=== PATIENT | female | born 2000 | race Caucasian/White ===

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

== ENCOUNTER 2023-02-13 20:04 | Emergency (ER) | payer OTHER, SELFPAY ==
[2023-02-13] VITALS (10 sets, daily range): BP systolic 114–149; BP diastolic 70–97; PULSE 73–103; RESP 16–18; TEMP 36.2–36.5; O2SAT 99–100
--- NOTE | ~2023-02-13 | US_ITS ---
EXAMINATION: US OB <= 14 weeks fetus INDICATION: abdominal pain, bleeding, 12 weeks TECHNIQUE: Sonography of the pelvis was performed by transabdominal techniques. COMPARISON: None. RESULT: Uterus: Retroverted uterus. Homogenous myometrium. The placenta is forming anteriorly. Cervix measur es 3 cm. Although the technologist reported a closed cervix, there is apparent funneling and fluid wi thin the endocervical canal in the submitted images. Intrauterine gestational sac: Single present. Embryo: Single present. [place] rump length: 5.26 cm, corresponding gestational age 12 weeks, 0 days. Gestational heart rate: Detected at 165 bpm. Subgestational hematoma: Absent . Right ovary: . Visualized. Left ovary: 2.8 x 2.3 x 3.4 cm. Vascular flow is present. Minimally complicated small ovarian cyst , likely resolving corpus luteal cyst. Pelvis free fluid: None. IMPRESSION: Single, live intrauterine gestation. Possible cervical incompetence, recommend OB consultation and cl ose clinical and sonographic follow-up. Estimated Gestational Age: 12 weeks, 0 days by crown rump length. KHUSHI by ultrasound 08/28/2023. Reviewed, dictated and finalized at location K. IMPRESSION: Single, live intrauterine gestation. Possible cervical incompetence, recommend OB consultation and close clinical and sonographic follow-up. Estimated Gestational Age: 12 weeks, 0 days by crown rump length. KHUSHI by ultra sound 08/28/2023.
--- NOTE | 2023-02-13 20:39 | PC.NURSE ---
Pt sts that she was at [facility] and left [facility]BS. Pt has results of labs that were drawn at previous hospital. Pt sts that she has been vomiting and noticed blood. PT is 11 weeks . IV established 22 L wrist. Pt is axox4, abc are wnl nad. PT denies pain at this time.
[2023-02-13 21:47] LABS: Basophils Absolute Auto 0.1 K/mm3 (0.0-0.1); Basophils Percent Auto 0.7 % (0.2-1.2); Eosinophils Absolute Auto 0.1 K/mm3 (0-0.3); Eosinophils Percent Auto 0.5 % (0-4.4); Hematocrit 38.2 % (37.0-47.0); Hemoglobin 12.9 g/dL (12.0-15.0); Immature Granulocyte Absolute 0.02 K/mm3 (0.00-0.031); Immature Granulocyte Percent A 0.2 % (0-0.5); Lymphocytes Absolute Auto 2.98 K/mm3 (0.9-3.2); Lymphocytes Percent Auto 28.1 % (18.3-44.2); Mean Corpuscular HGB Conc 33.8 g/dl (32-36); Mean Corpuscular Hemoglobin 31.8 pg (26-34); Mean Corpuscular Volume 94.1 fl (80-100); Monocytes Absolute Auto 0.4 K/mm3 (0.1-0.6); Neutrophils Absolute Auto 7.1 K/mm3 (1.3-6.7); Neutrophils Percent Auto 66.5 % (45.5-73.1); Platelet Count Result 221 k/mm3 (150-375); Red Blood Count 4.06 M/mm3 (4.2-5.4); Red Cell Distribution Width 12.2 % (11.5-14.5); White Blood Count 10.6 K/mm3 (4.5-10.0)
[2023-02-13 21:49] LABS: Appearance Urine Clear (Clear); Bilirubin Urine Negative (Negative); Blood Urine Negative (Negative); Color Urine Yellow (Yellow); Glucose Urine UA Negative (Negative); Ketones Urine 3+ mg/dL (Negative); Leukocyte Esterase Ur Negative LEU/UL (Negative); Nitrate Urine Negative (Negative); Protein Urine Negative (Negative); Specific Grav Ur 1.007 (1.001-1.035); Urobilinogen Urine 0.2 mg/dL (<2.0)
[2023-02-13 21:50] LABS: Add Urine Microscopic? NO
[2023-02-13 21:56] LABS: Alanine Aminotransferase 14 U/L (6-35); Albumin Level 4.2 g/dL (3.5-5.1); Alkaline Phosphatase 37 U/L (38-126); Anion Gap 13 mmol/L (8-16); Aspartate Amino Transferase 26 U/L (14-36); Bilirubin,Total 0.6 mg/dL (0.2-1.3); Blood Urea Nitrogen 5 mg/dL (7-17); Calcium 8.9 mg/dL (8.4-10.2); Carbon Dioxide 21 mmol/L (22-30); Chloride 103 mmol/L (98-107); Estimated CRCL calculation 160 ml/min; Estimated Glomerular Filt Rate > 60; Glucose 82 mg/dL (65-110); Potassium 3.2 mmol/L (3.4-5.0); Sodium 137 mmol/L (137-145)
[2023-02-13 21:57] LABS: INR 1.1; Prothrombin Time 14.8 Seconds (11.1-14.7)
--- NOTE | 2023-02-13 21:57 | ED.NAVMDI ---
HPI - Nausea/Vomiting/Diarrhea General Chief complaint: Nausea/Vomiting/Diarrhea Stated complaint: 12 weeks preg, spotting, n/v Time Seen by Provider: 02/13/23 20:14 History of Present Illness HPI Narrative: 22-year-old female, G1, P0, LMP 11/21 who is currently 12 weeks gestation reports for evaluation for abdominal pain, bright yellow and pink vaginal discharge, vomiting and lightheadedness. Patient states she has had a dull ache in her right lower quadrant today which she states feels like a pulled muscle. She reports 2 episodes of emesis today that mostly consisted of stomach acid but she does report a small tinge of blood in her last episode of emesis. She reports feeling lightheaded for the past week that is associated with nausea and spontaneously resolves after she vomits. She reports decreased p.o. intake today because she has not had time to eat after work. She is also complaining of a dribbling sensation coming from her vagina around 5:30 PM tonight, states she went to the bathroom and noticed bright yellow vaginal discharge with a small amount of pink tinge which she is concerned may be blood. She denies a gush of fluids, dysuria or hematuria, vaginal bleeding, diarrhea, melena, hematochezia, fever, chest pain or shortness of breath, concern for STDs, vaginal pain, vaginal lesions, or vaginal itching, back pain. She went to [facility] ED today and left prior to being seen and came to the ED after her friend advised her to come to [place] for evaluation. Patient states he had an ultrasound done at 6 weeks which confirmed IUP. Her first OB appointment is scheduled in 4 days. Her STATION MASTER is Joie Ayala at [facility]. States she is currently not nauseous or lightheaded. Related Data Home Medications Medication Instructions Recorded Confirmed bupropion HCl 150 mg tablet,12 hr 150 mg PO BID 04/16/21 08/27/21 sustained-release buspirone 10 mg tablet 10 mg PO BID 04/16/21 08/27/21 alprazolam 0.25 mg tablet 0.25 mg PO TID PRN Anxiety 08/27/21 08/27/21 Allergies Allergy/AdvReac Type Severity Reaction Status Date / Time No Known Allergies Allergy Verified 08/27/21 22:12 Review of Systems Review of Systems: CONSTITUTIONAL: Denies fever, chills EYES: Denies visual changes, redness, or discharge. ENT: Denies rhinorrhea, congestion, sore throat, or otalgia. CARDIOVASCULAR: Denies chest pain, palpitations, or edema. RESPIRATORY: Denies cough or dyspnea. GASTROINTESTINAL: See HPI GENITOURINARY: See HPI SKIN: Denies rash or itching. MUSCULOSKELETAL: Denies back pain, joint pain, or myalgia. NEUROLOGIC: Denies headache, numbness, dizziness, or weakness. PSYCHIATRIC: Denies anxiety or depression. [facility] Past Medical History Medical History Abdominal pain Gastroenteritis GERD without esophagitis Family History Family History Other GERD without esophagitis Exam Narrative: GENERAL: Well-appearing, in no acute distress. Patient resting comfortably in exam bed. She is pleasant and conversational. HEAD: Normocephalic EYES: PERRLA ENT: Nares clear. Mucous membranes moist. Oropharynx without tonsillar hypertrophy exudate or other lesions. NECK: Supple. CHEST: No respiratory distress. Clear to auscultation, no adventitious breath sounds. HEART: Regular rate and rhythm. No murmur heard. Normal peripheral pulses. ABDOMEN: Soft, nontender, normal active bowel sounds. No guarding or rigidity. No peritoneal signs. SHOPPER: No lesions to external genitalia, vaginal vault or cervix. Cervical os closed, scant amount of white discharge in vaginal vault. No blood in vaginal vault. No CMT, adnexal masses or tenderness. EXTREMITIES: Normal range of motion. No edema. SKIN: Warm, dry, no rash. NEURO: No focal deficits. Alert and oriented x3. PSYCH: Normal mood and affect. Course Vital Signs V
[2023-02-13 21:58] LABS: Partial Thromboplastin Time 28.8 SECONDS (22.3-36.8)
--- NOTE | 2023-02-13 22:01 | ECG_ITS ---
Measurements Intervals [place] Rate: 96 P: -1 NV: 154 QRS: 35 QRSD: 90 T: 2 QT: 335 QTc: 424 Interpretive Statements SINUS RHYTHM BORDERLINE ST-T WAVE ABNORMALITY- ANT/INF LEADS BORDERLINE ECG NO PREVIOUS ECG AVAILABLE FOR COMPARISON Electronically Signed On 02-14-2023 7:15:29 CDT by Alin Tate D.O.
[2023-02-13] MEDS: SODIUM CHLORIDE 0.9% IV 1,000 ML 999 ML IV CONT (22:02)
[2023-02-13] MEDS: POTASSIUM CHLORIDE 20 MEQ PACKET (FOR LIQUID) 40 MEQ PO (22:46)
[2023-02-13 23:56] LABS: Magnesium 1.9 mg/dL (1.6-2.3)
[2023-02-14] MEDS: SODIUM CHLORIDE 0.9% IV 1,000 ML 999 ML IV CONT (00:12)
[2023-02-14 00:58] VITALS: BP 128/74; PULSE 74; RESP 18; TEMP 36.9; O2SAT 100
--- NOTE | 2023-02-18 00:20 | PC.NURSE ---
02/16/23 iv stopped after infusion of ivf
--- NOTE | 2023-02-18 00:22 | PC.NURSE ---
02/16/23 iv stopped at dcd
== END 2023-02-14 00:58 | disposition home or self-care (01) ==
PROVIDERS: Emergency Provider Physician Assistant; PCP Physician Assistant
DX: O21.9 Vomiting of pregnancy, unspecified (principal); Z3A.20 20 weeks gestation of pregnancy; O99.612 Diseases of the digestive system complicating pregnancy, second trimester; K21.9 Gastro-esophageal reflux disease without esophagitis
CPT/HCPCS: 36415; 76801; 80053; 81003; 83735; 84702; 85025; 85461; 85610; 85730; 86850; 86900; 86901; 93005; 96360; 96361; 99284; A9270; J7030

== ENCOUNTER 2024-12-06 17:00 | Emergency (ER) | payer OTHER, SELFPAY ==
[2024-12-06] VITALS (8 sets, daily range): BP systolic 122–130; BP diastolic 78–99; PULSE 87–128; RESP 16–18; TEMP 36.6–37; O2SAT 97–100
--- NOTE | ~2024-12-06 | CT_ITS ---
EXAMINATION: CT abdomen pelvis wo con DATE: 12/06/2024 21:36 INDICATION: L flank pain, UTI TECHNIQUE: Computed tomography (CT) of the abdomen and pelvis was performed without intravenous contr ast. Automated exposure control and iterative reconstruction technique were employed. The dose-length product was 704.78 mGy-cm. COMPARISON: None. FINDINGS: Lower thorax: Unremarkable Liver: Normal. Biliary/Gallbladder: Gallbladder is normal. No bile duct dilation. Pancreas: No mass or duct dilation. Spleen: Normal. Adrenals:No mass. Kidneys: No suspicious mass, obstructing stone, or hydronephrosis. Minimal left perinephric stranding . GI tract: No small or large bowel dilation. Normal appendix. Mesentery/Peritoneum: No ascites, mass, or free air. Retroperitoneum: No mass. Pelvis: Pelvic organs are within normal limits. Soft Tissues: Soft tissues and body wall unremarkable. Bones: No acute osseous finding. IMPRESSION: Mild left perinephric stranding which could accompany pyelonephritis in the appropriate clinical sett ing. Reviewed, dictated and finalized at location K. IMPRESSION: Mild left perinephric stranding which could accompany pyelonephritis in the vinh ropriate clinical setting.
--- OUTSIDE RECORDS SUMMARY | 2024-12-06 17:03 | XMS_ITS | Referral Summary ---
Author Organization [facility] Address [address] [place] [address] Care Team Providers Care Full Stack Developer Name Role Phone Sean Barker Primary Care Provider Encounters Date Type Department Care Team Description 12/06/2024 4:24 PM CDT - 12/06/2024 4:28 PM CDT Emergency [facility] Emergency Department [address] [place] [address] Discharge Disposition: Left without being seen 12/06/2024 3:15 PM CDT Office Visit [facility] [place] [address] [place] [phone] Thelma Alcala NP Nausea (Primary Dx); Abdominal pain; Pyelonephritis 11/02/2024 Results Follow-Up [facility] [place] [address] [place] [phone] Pretty Hayden NP 11/01/2024 1:47 PM CDT - 11/01/2024 11:59 PM [place] [address] Acute cystitis with hematuria Discharge Disposition: Discharge to home or self care 11/01/2024 2:00 PM CDT Office Visit [facility] [place] [address] [place] [phone] Thelma Alcala NP Acute cystitis with hematuria (Primary Dx) from Last 3 Months Allergies No known active allergies Medications escitalopram (LEXAPRO) 10 mg tablet TAKE 1 TABLET BY MOUTH EVERY DAY 90 tablet 4 Active al & mag hydroxide with simethicone-diph enhydramine-lido maday (MAGIC MOUTHWASH) suspension [id number] :Pharyngitis, unspecified etiology Swish and spit 10 mL every 4 (four) hours as needed (sore throat) 100 mL 4 Active cephalexin (KEFLEX) 500 mg capsule Take 1 capsule (500 mg total) by mouth 2 (two) times a day for 7 days 14 capsule 5 11/09/19 25 Active Problems Problem Noted Date Diagnosed Date care and examination 09/08/2023 Assessment & Plan (09/08/2023 9:53 AM DISPATCH MANAGER): Doing well Tachycardia 08/28/2023 Assessment & Plan (09/08/2023 9:53 AM DISPATCH MANAGER): Persist today She is about 110 She is asx. She states her pulse is always high. Tsh normal 08/28/23 Anemia 08/28/2023 Overview (09/08/2023): 08/28/23- 7.4 Assessment & Plan (10/06/2023 2:29 PM CDT): To cbc She is feeling good No more tachycardia. Assessment & Plan (09/08/2023 9:48 AM DISPATCH MANAGER): She is taking her iron. 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 03/16/23- negative My Risk and VUS 29.8% my risk score and 21.9% TC model Assessment & Plan (02/22/2023 5:59 AM CDT): She qualifies for genetic testing. Will arrange. RTO 6 weeks for the results. The limitations and implications of the test reviewed. She voices understanding and would like to proceed. Pricing was discussed. Resolved Problems Problem Noted Date Diagnosed Date Resolved Date hemorrhage 08/28/20232023 with 39 completed weeks gestation 08/25/2023 09/08/2023 39 weeks gestation of 08/18/2023 09/08/2023 Encounter for supervision of normal first in third trimester 08/10/2023 09/08/2023 36 weeks gestation of 08/03/2023 09/08/2023 Encounter for supervision of normal first in first trimester 02/22/2023 09/08/2023 Overview (03/16/2023): 03/16/23- negative cell free dna testing. Uncertain SMA on carrier screening. Assessment & Plan (02/22/2023 5:57 AM CDT): Her cervix seems fine today Will send her for CL as I dont have the records from [facility] Will try to obtain. Rubella non-immune status, antepartum 02/18/2023 10/06/2023 Overview (02/18/2023): 02/18/23- will plan to vaccinate pp Assessment & Plan (09/08/2023 9:46 AM DISPATCH MANAGER): She got pp Immunizations Immunization Administration Dates Next Due Influenza, Unspecified 06/22/2023(Deferred: Susan ent Refused) MMR 08/28/2023 Tdap 08/03/2023,06/22/2023(Deferred: Patient Refused) Social History Tobacco Use Types Packs/Day Years Used Date Smoking Tobacco: Never Smokeless Tobacco: Never Tobacco Cessation:Counseling Given: Not Answered Humiliation, Afraid, Rape, and Kick questionnair e Answer Date Recorded Within the last year, have y ou been afraid of your partner or ex-partner? No 02/17/2023 Within the last year, have y ou been humiliated or emotionally abused in other ways by your partner or ex-partner? No Within the last year, have y ou been kicked, hit, slapped, or otherwise physically hurt by your partner or ex-partner? No 02/17/2023 Within the last year, have y ou been raped or forced to have any kind of sexual activity by your partner or ex-partner? No 02/17/2023 Social Connection and Isolat ion Panel [NHANES] Answer Date Recorded In a typical week, how many times do you talk on the phone with family, friends, or neighbors? More than three times a week 08/25/2023 How often do you get togethe r with friends or relatives? Once a week 08/25/2023 How often do you attend chur or pentecostalism services? Never 08/25/2023 Do you belong to any clubs o r organizations such as methodist groups, unions, fraternal or athletic groups, or school groups? No 08/25/2023 How often do you attend meet ings of the clubs or organizations you belong to? Never 08/25/2023 Are you , , di vorced, , never , or living with a partner? Living with partner 08/25/2023 AUDIT-C Answer Date Recorded Q1: How often do you have a drink containing alcohol? Never 08/25/2023 Q2: How many drinks containi ng alcohol do you have on a typical day when you are drinking? Patient does not drink Q3: How often do you have si x or more drinks on one occasion? Never 08/25/2023 Overall Financial Resource Strain (CARDIA) Answe r Date Recorded How hard is it for you to pa y for the very basics like food, housing, medical care, and heating? Not hard at all 08/25/2023 PHQ-2 Answer Date Recorded PHQ-2 Total Score (If total score is 3 or more points, staff should administer the PHQ-9) 0 08/25/2023 [facility] - Occupational Stress Questionnaire Answer Date Recorded Do you feel stress - tense, restless, nervous, or anxious, or unable to sleep at night because your mind is troubled all the time - these days? Not at all 08/25/2023 Exercise Vital Sign Answer Date Recorde d On average, how many days pe r week do you engage in moderate to strenuous exercise (like a brisk walk)? 7 days 08/25/2023 On average, how many minutes do you engage in exercise at this level? 30 min 08/25/2023 Hunger Vital Sign Answer Date Recorded Within the past 12 months, y ou worried that your food would run out before you got the money to buy more. Never true 08/25/19 24 Within the past 12 months, t he food you bought just didn't last and you didn't have money to get more. Never true 08/25/2023 PRAPARE - Transportation Answer Date Re corded In the past 12 months, has l ack of transportation kept you from medical appointments or from getting medications? No 07/29 In the past 12 months, has l ack of transportation kept you from meetings, work, or from getting things needed for daily living? No 08/25/2023 Housing Stability Vital Sign Answer Alex e Recorded In the last 12 months, was t here a time when you were not able to pay the mortgage or rent on time? No 08/25/2023 In the last 12 months, how many places have you lived? 2 08/25/2023 In the last 12 months, was t here a time when you did not have a steady place to sleep or slept in a skilled nursing (including now)? No 08/25/2023 [place] Depression Scale Answer Date Recorded [place] Depression Scale Total 0 10/06/2023 The thought of harming myself has occurred to me . Never 10/06/2023 Personal Safety Answer Date Recorded Have you ever been in or are you currently in a harmful physical or emotional relationship or is someone making you feel afraid or unsafe? Denies 08/25/2023 Comments No Sex and Gender Information Value Date Recorded Sex Assigned at Not on file Legal Sex Female 4:17 PM DISPATCH MANAGER Gender Identity Not on file Sexual Orientation Not on file Last Filed Vital Signs Vital Sign Reading Time Taken Comments Blood Pressure 118/78 12/06/2024 3:09 PM CDT Pulse 105 12/06/2024 3:09 PM CDT Temperature 37.1 C (98.8 F) 12/06/2024 3:09 PM CDT Respiratory Rate 22 12/06/2024 3:09 PM CDT Oxygen Saturation 98% 12/06/2024 3:09 PM CDT Inhaled Oxygen Concentration - - Weight 79.4 kg (175 lb) 12/06/2024 3:09 PM CDT Height 160 cm (5' 3 ) 12/06/2024 3:09 PM CDT Body Mass Index 31 12/06/2024 3:09 PM CDT Plan of Treatment Not on file Procedures Procedure Name Priority Date/Time Associated Diagnosis Comments POCT HCG, URINE Routine 12/06/2024 3:34 PM CDT Nausea POCT URINALYSIS DIPSTICK Routine 12/06/2024 3:33 PM CDT Nausea POCT URINALYSIS DIPSTICK Routine 11/01/2024 1:48 PM CDT Acute cystitis with hematuria URINE CULTURE Routine 11/01/2024 1:47 PM CDT Acute cystitis with hematuria HEPATITIS C ANTIBODY Routine 06/08/2023 12:17 PM DISPATCH MANAGER Encounter for supervision of normal first in second trimester 28 weeks gestation of from Last 3 Months or Most Recently Relevant to Health Maintenance Results * POCT hCG, urine (12/06/2024 3:34 PM CDT) HCG, ur, POC Negative Negative Lot Number [id number] QC Backgroud Clear Acceptable QC Control Line Acceptable Urine 12/06/2024 3:34 PM CDT Thelma Alcala NP POINT OF CARE TEST ORDERABLES Fi nal Result * (ABNORMAL) POCT urinalysis dipstick (12/06/2024 3:33 PM CDT) Color, Urine, POC Dark Yellow Clarity, ur, POC Clear Clear Glucose, ur, POC Negative Negative Bilirubin, ur, POC Small(A) Negative Ketones, ur, POC 15.(A) Negative Specific [place], POC 1.020 1.003 - 1.030 Blood, ur, POC Moderate(A) Negative pH, ur, POC 6.0 5.0 - 8.0 Protein, ur, POC 30.(A) Negative Urobilinogen, urine, POC 1.0 0.2 - 1.0 mg/dL Nitrite, ur, POC Negative Negative Leukocytes, ur, POC Moderate(A) Negative Lot Number [id number] Urine 12/06/2024 3:33 PM CDT us Thelma Alcala NP POINT OF CARE TEST ORDERABLES Fi nal Result * (ABNORMAL) POCT urinalysis dipstick (11/01/2024 1:48 PM CDT) Color, Urine, POC Light Yellow Clarity, ur, POC Turbid(A) Clear Glucose, ur, POC Negative Negative MG/DL Bilirubin, ur, POC Negative Negative, Small, Moderate, Large Ketones, ur, POC Negative Negative Specific [place], POC 1.025 1.003 - 1.030 Blood, ur, POC Moderate(A) Negative pH, ur, POC 7.0 5.0 - 8.0 Protein, ur, POC 100.(A) Negative Urobilinogen, urine, POC 0.2 0.2 - 1.0 mg/dL Nitrite, ur, POC Negative Negative Leukocytes, ur, POC Moderate(A) Negative Lot Number [id number] Urine 11/01/2024 1:48 PM CDT us Thelma Alcala NP POINT OF CARE TEST ORDERABLES Fi nal Result * (ABNORMAL) Urine culture Urine, clean voided (11/01/2024 1:47 PM CDT) Report Final Report: Greater than or equal to 100,000 colonies/mL of Escherichia coli (.) Comment:Testing performed by : [facility], [address] [place]., [address] Organism ESCHERICHIA COLI [place] Urine, clean voided 11/01/2024 1:47 PM CDT 11/01/2024 10:34 PM CDT Narrative DESMOND - 11/04/2024 6:17 AM CDT Testing performed by [facility] Microbiology Laboratory ([phone]) Organism Antibiotic Method Susceptibility Escherichia coli Ampicillin INTERPRETATION Susceptible Escherichia coli Cefazolin INTERPRETATION Susceptible Escherichia coli Nitrofurantoin INTERPRETATION Susceptible Escherichia coli Gentamicin INTERPRETATION Susceptible Escherichia coli Trimethoprim with Sulfamethoxazole IN TERPRETATION Susceptible Escherichia coli Meropenem INTERPRETATION Susceptible Escherichia coli Cefepime INTERPRETATION Susceptible Escherichia coli Ciprofloxacin INTERPRETATION Susceptible Escherichia coli Ceftazidime INTERPRETATION Susceptible Escherichia coli Ceftriaxone INTERPRETATION Susceptible Escherichia coli Piperacillin/Tazobactam INTERPRETATIO N Susceptible Escherichia coli Cephalexin INTERPRETATION Susceptible Escherichia coli Cefuroxime-axetil INTERPRETATION Susceptible Escherichia coli Cefdinir INTERPRETATION Susceptible Thelma Alcala NP LAB MICROBIOLOGY - GENERAL ORDER ADRIAN Final Result Performing Organization Address City/[facility] Co de Phone Number [facility] [address] [address] Department [place] [address] * Hepatitis C antibody Blood (06/08/2023 12:17 PM DISPATCH MANAGER) Hep C Ab Nonreactive Nonreactive DESMOND Comment: Interpretive Data Nonreactive: Antibodies to HCV not detected. Does NOT exclude the possibility of recent exposure to HCV. Equivocal: Equivocal for HCV antibodies. Supplemental molecular testing will be automatically performed to determine infection status in accordance with current CDC screening recommendations. Reactive: Positive for HCV antibodies. This may represent current or past HCV infection. Supplemental molecular testing will be automatically performed to determine current infection status in accordance with current CDC screening recommendations. Interpretive data was last revised on 2019. Blood 06/08/2023 12:1 7 PM DISPATCH MANAGER 06/08/2023 8:11 PM DISPATCH MANAGER Rajni Chambrelain ROOFING MACHINE OPERATOR LAB MICROBIOLOGY - GENERAL [place] [id number] [address] Department [place] [address] from Last 3 Months or Most Recently Relevant to Health Maintenance Insurance [employer] [facility] [employer] [facility] Advance Directives For more information, please contact: [phone] * Full Code (Latest Code Status on File) Date Activated Date Inactivated Comments 08/26/2023 5:16 AM 08/28/2023 5:54 PM * Full Code Date Activated Date Inactivated Comments 08/25/2023 11:30 AM 08/26/2023 5:16 AM Full CPR in case of cardiopulmonary arrest Care Teams Full Stack Developer Relationship Specialty Start Date End Date Sean Barker PA [address] [place] [address] PCP - General 08/25/17
--- OUTSIDE RECORDS SUMMARY | 2024-12-06 17:03 | XMS_ITS | Encounter Summary ---
Author Organization [facility] Healthcare Address [address] [place] [address] Care Team Providers Care Dining Room Cashier Name Role Phone Sean Barker Primary Care Provider [phone] Reason for Visit * Reason Comments Headache Migraines, [place] pain, chills, nausea, vomiting, constipation, nausea. Symptoms started . otc excedrin, ibuprofen Encounter Details Date Type Department Care Team (Late st Contact Info) Description 12/06/2024 3:15 PM CDT Office Visit [facility] [place] [address] [place] [address] Thelma Alcala NP [address] [place] [address] Nausea (Primary Dx); Abdominal pain; Pyelonephritis Social History Tobacco Use Types Packs/Day Years Used Date Smoking Tobacco: Never Smokeless Tobacco: Never Humiliation, Afraid, Rape, and Kick questionnair e [...] 08/25/2023 How often do you attend chur ch or jew services? Never 08/25/2023 Do you belong to any clubs o r organizations such as roman catholic groups, unions, fraternal or athletic groups, or [...] staff should administer the PHQ-9) 0 08/25/2023 [facility] Occupat ional Health - Occupational Stress Questionnaire Answer Date Recorded [...] place to sleep or slept in a custodial (including now)? No 08/25/2023 [place] Depression Scale Answer Date Recorded [place] Depression Scale Total 0 10/06/2023 The thought [...] on file Legal Sex Female 4:17 PM SOCIAL SERVICES DIRECTOR Gender Identity Not on file Sexual Orientation Not on file documented as of this encounter Last Filed Vital Signs Vital Sign Reading [...] Mass Index 31 12/06/2024 3:09 PM CDT documented in this encounter Patient Instructions * Patient Instructions* Thelma Alcala NP - 12/06/2024 3:15 PM CDT Go to [facility] ED for further evaluation documented in this encounter Plan of Treatment Not on file documented as of this encounter Procedures Procedure Name Priority Date/Time Associated Diagnosis Comments POCT HCG, URINE Routine 12/06/2024 3:34 PM CDT Nausea POCT URINALYSIS DIPSTICK Routine 12/06/2024 3:33 PM CDT Nausea documented in this encounter Results * POCT hCG, urine (12/06/2024 3:34 [...] Negative Ketones, ur, POC 15.(A) Negative Specific [place], POC 1.020 1.003 - 1.030 Blood, ur, POC Moderate(A) Negative pH, ur, POC 6.0 5.0 - 8.0 Protein, ur, POC 30.(A) Negative Urobilinogen, urine, POC 1.0 0.2 - 1.0 mg/dL Nitrite, ur, POC Negative Negative Leukocytes, ur, POC Moderate(A) Negative Lot Number [id number] Urine 12/06/2024 3:33 PM CDT us Thelma Ferminen COMMERCIAL TELLER POINT OF CARE TEST ORDERABLES Fi nal Result documented in this encounter Visit Diagnoses Diagnosis Nausea- Primary Nausea alone Abdominal pain Abdominal pain, unspecified site Pyelonephritis Unspecified pyelonephritis documented in this encounter Care Teams Dining Room Cashier Relationship Specialty Start Date End Date Sean Barker PA [address] [place] [address] PCP - General 08/25/17 documented as of this encounter
--- OUTSIDE RECORDS SUMMARY | 2024-12-06 17:03 | XMS_ITS | Encounter Summary ---
Author Organization [facility] Healthcare Address [address] [place] [address] Care Team Providers Care Traffic Control Specialist Name Role Phone Sean Barker Primary Care Provider [phone] Encounter Details Date Type Department Care Team (Late st Contact Info) Description 12/06/2024 4:24 PM CDT - 12/06/2024 4:28 PM CDT Emergency [facility] Emergency Department [address] [place] [address] Discharge Disposition: Left without being seen Social History Tobacco Use Types Packs/Day Years [...] often do you attend chur ch or anabaptist services? Never 08/25/2023 Do you belong to any clubs o r organizations such as restoration groups, unions, fraternal or athletic groups, or [...] staff should administer the PHQ-9) 0 08/25/2023 [facility] of Occupat ional [facility] - Occupational Stress Questionnaire Answer Date Recorded [...] place to sleep or slept in a penitentiary (including now)? 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 Gender Identity Not on file Sexual Orientation Not on file documented as of this encounter Medications at Time of Discharge al & mag hydroxide with simethicone-diphen hydramine-lidocain e (MAGIC MOUTHWASH) suspension [id number] haryngitis, unspecified etiology Swish and spit 10 mL every 4 (four) hours as needed (sore throat) 100 mL 05/10/2024 escitalopram (LEXAPRO) 10 mg tablet TAKE 1 TABLET BY MOUTH EVERY DAY 90 tablet 04/11/2024 documented as of this encounter Discharge Disposition Disposition Code Departure Means Destination Left without being seen documented in this encounter Plan of Treatment Not on file documented as of this encounter Visit Diagnoses Not on filedocumented in this encounter Care Teams Traffic Control Specialist Relationship Specialty Start Date End Date Sean Barker PA [address] [place] [address] PCP - General 08/25/17 documented as of this encounter
--- OUTSIDE RECORDS SUMMARY | 2024-12-06 17:03 | XMS_ITS | Clinical Summary ---
Author Organization [facility] Medical Office Building B Address [address] [place] [address] Care Team Providers Care Department Of Mathematics Chair Name Role Phone Sean Barker Primary Care Provider [phone] Allergies No known active allergies Medications escitalopram (LEXAPRO) 10 mg tablet TAKE 1 TABLET BY MOUTH EVERY DAY 90 tablet 4 Active al & mag hydroxide with simethicone-diph enhydramine-lido maday (MAGIC MOUTHWASH) suspension [id number] :Pharyngitis, unspecified etiology Swish and spit 10 mL every 4 (four) hours as needed (sore throat) 100 mL 4 Active cephalexin (KEFLEX) 500 mg capsule Take 1 capsule (500 mg total) by mouth 2 (two) times a day for 7 days 14 capsule 5 11/09/19 25 Active Problems Problem Noted Date Diagnosed Date care and examination 09/08/2023 Assessment & Plan (09/08/2023 9:53 AM PERSONAL FINANCIAL COUNSELOR): Doing well Tachycardia 08/28/2023 Assessment & Plan (09/08/2023 9:53 AM PERSONAL FINANCIAL COUNSELOR): Persist today She is about 110 She is asx. She states her pulse is always high. Tsh normal 08/28/23 Anemia 08/28/2023 Overview (09/08/2023): 08/28/23- 7.4 Assessment & Plan (10/06/2023 2:29 PM CDT): To cbc She is feeling good No more tachycardia. Assessment & Plan (09/08/2023 9:48 AM PERSONAL FINANCIAL COUNSELOR): She is taking her iron. 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 Overview (04/16/2023): 04/16/23- patient is an uncertain carrier (may have both genes on one chromosome) Her partner, Angel, is negative Marijuana use 02/18/2023 Overview (02/18/2023): 02/18/23- positive uds Family history of pancreatic cancer 02/17/2023 Overview (03/16/2023): Mgf- medley can She is not in contact [...] pp Assessment & Plan (09/08/2023 9:46 AM PERSONAL FINANCIAL COUNSELOR): She got pp Encounters Date Type Department Care Team Description 12/06/2024 4:24 PM CDT - 12/06/2024 4:28 PM CDT Emergency [facility] Emergency Department [address] [place] [address] Discharge Disposition: Left without being seen 12/06/2024 3:15 PM CDT Office Visit [facility] Medical [facility] Convenient Care at [address] [place] [address] Thelma Alcala NP Nausea (Primary Dx); Abdominal pain; Pyelonephritis 11/02/2024 Results Follow-Up [facility] Care at [place] [address] [place] [address] Pretty Hayden NP 11/01/2024 2:00 PM CDT Office Visit [facility] Convenient Care at [address] [place] [address] Thelma Alcala NP Acute cystitis with hematuria (Primary Dx) 11/01/2024 1:47 PM CDT - 11/01/2024 11:59 PM CDT Hospital Encounter [place] [id number] Acute cystitis with hematuria Discharge Disposition: Discharge to home or self care from Last 3 Months Immunizations Immunization Administration Dates Next Due Influenza, Unspecified 06/22/2023(Deferred: Susan ent Refused) MMR 08/28/2023 Tdap 08/03/2023,06/22/2023(Deferred: Patient Refused) Medical History Medical History Date Comments hemorrhage 08/28/2023 Family History Medical History Relation Name Comments Pancreatic cancer Maternal Grandfather no genetic testing Bone cancer Maternal Grandmother Breast cancer Maternal Grandmother Cancer Neg Hx no colon or reconditioner cancer cmt 02/17/23 Relation Name Status Comments Maternal Grandfather Maternal Grandmother Social History Tobacco Use Types Packs/Day Years [...] How often do you attend chur or worship services? Never 08/25/2023 Do you belong to any clubs o r organizations such as worship groups, unions, fraternal or athletic groups, or [...] staff should administer the PHQ-9) 0 08/[facility]/20[facility] - Occupational Stress Questionnaire Answer Date [...] place to sleep or slept in a mcc (including now)? No 08/25/2023 Drumore Depression Scale Answer Date Recorded Drumore Depression Scale Total 0 10/06/2023 The thought [...] on file Legal Sex Female 4:17 PM PERSONAL FINANCIAL COUNSELOR Gender Identity Not on file Sexual Orientation Not on file Obstetrics History Para Term AB IAB SAB Ectopic Multiple Livin g Live Births 1 1 1 0 1 1 Date Outcome GA Total Labor Labor/2nd/3rd Weight Sex Type Anes PTL Mara A1 A5 Name Clin 2023 Term 39w 4d 13h 22m 8h 41m/4h 37m/0h 04m 3.705 kg (8 lb 2.7 oz) F C-Sec tion Epidur al N Livin g 8 9 Anthony bell, Chris werner MD Complications:Failure to Pro sampson in Second Stage Delivery Location:This [facility] ([facility] L AND D PROCEDURE) Last Filed Vital Signs Vital Sign Reading [...] 12/06/2024 3:09 PM CDT Plan of Treatment Health Maintenance Due Date Last Done Comments Cervical Cancer Screening 2002 Chlamydia and Gonorrhea (GC/ CT) Screening 2002 HPV Vaccines (1 - 3-dose series) 2017 Covid-19 Vaccine (3 - 2023-2 5 season) 2024 04/12/2021, 03/22/2021 Regular Well Visit/Exam 18-64 08/10/2024 08/10/2023 Depression Screening 10/05/2024 10/06/2023, 08/18/2023, 07/30/2023, Additional history exists Influenza Vaccine (Season Ended) 2025 DTaP/Tdap/Td Vaccine (8 - Td or Tdap) 08/03/2033 08/03/2023, 01/12/2013, 03/03/2007, Additional history exists Pneumococcal vaccine <65 Completed 006, 07/23/2004, 05/23/2003, Additional history exists Varicella Vaccines Completed 03/03/2007, 07/23/2004 Hepatitis B Screening Completed 09/15/2018 , 07/23/2004, 03/21/2003 Meningococcal Vaccine Completed 04/24/2020 , 03/09/2014, 02/27/2014 Meningococcal B Vaccine Completed 08/21/2021, 04/24 Hepatitis C Screening Completed 06/08/2023, 023 Procedures Procedure Name Priority Date/Time Associated Diagnosis Comments POCT HCG, URINE Routine 12/06/2024 3:34 PM CDT Nausea POCT URINALYSIS DIPSTICK Routine 12/06/2024 3:33 PM CDT Nausea POCT URINALYSIS DIPSTICK Routine 11/01/2024 1:48 PM CDT Acute cystitis with hematuria URINE CULTURE Routine 11/01/2024 1:47 PM CDT Acute cystitis with hematuria HEPATITIS C ANTIBODY Routine 06/08/2023 12:17 PM PERSONAL FINANCIAL COUNSELOR Encounter for supervision of normal first in [...] Negative Ketones, ur, POC 15.(A) Negative Specific [place], POC 1.020 1.003 - 1.030 Blood, ur, POC Moderate(A) Negative pH, ur, POC 6.0 5.0 - 8.0 Protein, ur, POC 30.(A) Negative Urobilinogen, urine, POC 1.0 0.2 - 1.0 mg/dL Nitrite, ur, POC Negative Negative Leukocytes, ur, POC Moderate(A) Negative Lot Number [id number] Urine 12/06/2024 3:33 PM CDT [facility] POINT OF CARE TEST ORDERABLES Fi nal Result * (ABNORMAL) POCT urinalysis dipstick (11/01/2024 1:48 PM CDT) Color, Urine, POC Light Yellow Clarity, ur, POC Turbid(A) Clear Glucose, ur, POC Negative Negative MG/DL Bilirubin, ur, POC Negative Negative, Small, Moderate, Large Ketones, ur, POC Negative Negative Specific [place], POC 1.025 1.003 - 1.030 Blood, ur, POC Moderate(A) Negative pH, ur, POC 7.0 5.0 - 8.0 Protein, ur, POC 100.(A) Negative Urobilinogen, urine, POC 0.2 0.2 - 1.0 mg/dL Nitrite, ur, POC Negative Negative Leukocytes, ur, POC Moderate(A) Negative Lot Number [id number] Urine 11/01/2024 1:48 PM [facility] POINT OF CARE TEST ORDERABLES Fi nal Result * (ABNORMAL) Urine culture Urine, clean voided (11/01/2024 1:47 PM CDT) Report Final Report: Greater than or equal to 100,000 colonies/mL of Escherichia coli (.) Comment:Testing performed by : [facility], [address] [place]., [address] Organism ESCHERICHIA COLI DESMOND Urine, clean voided 11/01/2024 1:47 PM CDT 11/01/2024 10:34 PM CDT Narrative DESMOND - 11/04/2024 6:17 AM CDT Testing performed by [facility] Microbiology Laboratory ([phone]) Organism Antibiotic Method Susceptibility Escherichia coli Ampicillin [...] MICROBIOLOGY - GENERAL ORDER ADRIAN Final Result DESMOND [address] Department [place] [address] * Hepatitis C antibody Blood (06/08/2023 12:17 PM PERSONAL FINANCIAL COUNSELOR) Hep C Ab Nonreactive Nonreactive DESMOND Comment: [...] on 2019. Blood 06/08/2023 12:1 7 PM PERSONAL FINANCIAL COUNSELOR 06/08/2023 8:11 PM PERSONAL FINANCIAL COUNSELOR Rajni Chamberlain DIRECTOR [facility] MICROBIOLOGY - GENERAL ORDERABLES Final Result DESMOND [id number] Department [place] [address] from Last 3 Months or Most Recently Relevant to Health Maintenance Insurance [facility] Advance Directives For more information, please contact: [phone] * Full Code (Latest Code Status on File) Date Activated Date Inactivated Comments 08/26/2023 5:16 AM 08/28/2023 5:54 PM * Full Code Date Activated Date Inactivated Comments 08/25/2023 11:30 AM 08/26/2023 5:16 AM Full CPR in case of cardiopulmonary arrest Care Teams Department Of Mathematics Chair Relationship Specialty Start Date End Date Sean Barker PA [address] [place] [address] PCP - General 08/25/17
--- NOTE | 2024-12-06 18:34 | ED.FEMALEGU ---
HPI - Female Genitourinary General Chief complaint: Urogenital-Female <Chhaya Fernandez PA-C - Last Filed: 12/06/24 18:40> Stated complaint: sent from UTI <Chhaya Fernandez PA-C - Last Filed: 12/06/24 18:40> Time Seen by Provider: 12/06/24 19:04 <Chhaya Fernandez PA-C - Last Filed: 12/06/24 18:40> Focused HPI: 23-year-old female presents emergency department for a kidney infection. Patient states she started having low back pain 4 days ago, woke up the following day with nausea, vomiting, chills. States since then she has been unable to keep down food or fluids. She went to urgent care today and had a urinalysis performed which was concerning for a UTI. She was advised to come to the ED due to concerns for a kidney infection. She states she feels dehydrated. She is reporting pain diffusely throughout her lower abdomen into her left CVA region. Denies history of kidney stones, dysuria, hematuria, fever. Endorses a history of a in July 2023, otherwise no abdominal surgeries. GENERAL: Well-appearing, well-nourished, and in no acute distress. HEAD: Normocephalic, atraumatic. CHEST: Clear to auscultation. ?No respiratory distress ABD: Normoactive bowel sounds. Abdomen soft with diffuse lower abdominal tenderness and left CVA tenderness. No rebound or rigidity. HEART: Tachycardia, regular rhythm? NEURO: ?Alert and oriented x3. Patient screened in triage and initial orders placed.? ?Additional care and disposition to be based upon?diagnostic testing and treatment. <Chhaya Fernandez PA-C - Last Filed: 12/06/24 18:40> Related Data Home medications: Home Medications ?Medication ?Instructions ?Recorded ?Confirmed ?Last Taken ?Type bupropion HCl 150 mg tablet,12 hr 150 mg PO BID 04/16/21 08/27/21 Unknown History sustained-release buspirone 10 mg tablet 10 mg PO BID 04/16/21 08/27/21 Unknown History alprazolam 0.25 mg tablet 0.25 mg PO TID PRN Anxiety 08/27/21 08/27/21 Unknown History <Chhaya Fernandez PA-C - Last Filed: 12/06/24 18:40> Allergies/Adverse reactions: Allergies Allergy/AdvReac Type Severity Reaction Status Date / Time No Known Allergies Allergy Verified 12/06/24 17:20 <Chhaya Fernandez PA-C - Last Filed: 12/06/24 18:40> [facility] Past Medical History Medical History: Medical History Abdominal pain Gastroenteritis GERD without esophagitis <Chhaya Fernandez PA-C - Last Filed: 12/06/24 18:40> Family History Family History: Family History Other GERD without esophagitis <Chhaya Fernandez PA-C - Last Filed: 12/06/24 18:40> Exam Narrative: APPEARANCE: No apparent distress. Head: atraumatic. EYES: EOMI, NOSE: Atraumatic NECK: Trachea midline RESPIRATORY: No increased rate of breathing clear to auscultation CARDIOVASCULAR: Tachycardic ABDOMINAL: Non-distended soft nontender, left CVA tenderness MUSCULOSKELETAl: No obvious deformities NEURO: Alert. Moving 4/4 extremities SKIN:: Warm, dry. Normal color PSYCHIATRIC: Normal affect <Patrice Paige MD - Last Filed: 12/06/24 22:12> Course Vital Signs Vital signs: Vital Signs Temperature 97.9 F 12/06/24 17:18 Pulse Rate 128 H 12/06/24 17:18 Respiratory Rate 18 12/06/24 17:18 Blood Pressure 130/99 H 12/06/24 17:18 Pulse Oximetry 100 12/06/24 17:18 Oxygen Delivery Room Air 12/06/24 17:18 Temperature 98.6 F 12/06/24 21:50 Pulse Rate 87 12/06/24 20:45 Respiratory Rate 18 12/06/24 17:18 Blood Pressure 127/79 12/06/24 20:45 Pulse Oximetry 100 12/06/24 20:45 Oxygen Delivery Room Air 12/06/24 17:18 <Chhaya Fernandez PA-C - Last Filed: 12/06/24 18:40> Vital Signs Temperature 97.9 F 12/06/24 17:18 Pulse Rate 128 H 12/06/24 17:18 Respiratory Rate 18 12/06/24 17:18 Blood Pressure 130/99 H 12/06/24 17:18 Pulse Oximetry 100 12/06/24 17:18 Oxygen Delivery Room Air 12/06/24 17:18 Temperature 98.6 F 12/06/24 21:50 Pulse Rate 87 12/06/24 20:45 Respiratory Rate 18 12/06/24 17:18 Blood Pressure 127/79 12/06/24 20:45 Pulse Oximetry 100 12/06/24 20:45 Oxygen Delivery Room Air 12/06/24 17:18 <Patrice Paige MD - Last Filed: 12/06/24 22:12> MDM - Female Genitourinary MDM Narrative Medical decision making narrative: -Course: 23-year-old female fevers nausea vomiting x4 days. She has left CVA tenderness infection urine. Presentation consistent pyelonephritis. She is given fluid resuscitation, NSAIDs and antibiotics. Vital signs have normalized. She is feeling much better. She has good candidate for outpatient management. Discharged on cefdinir. Primary care follow-up return precautions. -DDX includes but is not limited to: Viral syndrome, UTI, pyelonephritis, gastroenteritis, pneumonia <Patrice Paige MD - Last Filed: 12/06/24 22:12> Lab Data Result diagrams: 12/06/24 19:46 12/06/24 19:46 <Chhaya Fernandez PA-C - Last Filed: 12/06/24 18:40> Labs: Lab Results 12/06/24 12/06/24 12/06/24 Range/Units 19:46 21:02 21:05 WBC 7.8 (4.5-10.0) K/mm3 RBC 4.45 (4.2-5.4) M/mm3 Hgb 12.8 (12.0-15.0) g/dL Hct 40.5 (37.0-47.0) % MCV 91.0 (80-100) fl MCH 28.8 (26-34) pg MCHC 31.6 L (32-36) g/dl RDW 13.9 (11.5-14.5) % Plt Count 204 (150-375) k/mm3 MPV 11.3 H (7.4-10.4) fl Immature Gran % (Auto) 0.3 (0-0.5) % Neut % (Auto) 68.4 (45.5-73.1) % Lymph % (Auto) 20.8 (18.3-44.2) % Sebastian % (Auto) 9.8 H (2.6-8.5) % Eos % (Auto) 0.1 (0-4.4) % Baso % (Auto) 0.6 (0.2-1.2) % Lymph # (Auto) 1.62 (0.9-3.2) K/mm3 Sebastian # (Auto) 0.8 H (0.1-0.6) K/mm3 Eos # (Auto) 0.0 (0-0.3) K/mm3 Baso # (Auto) 0.1 (0.0-0.1) K/mm3 Abs Immat Gran (auto) 0.02 (0.00-0.031) K/mm3 Absolute Neuts (auto) 5.3 (1.3-6.7) K/mm3 Absolute Nucleated RBC 0.000 (0.0-0.012) K/mm3 Nucleated RBC % 0.0 (0.0-0.2) % Sodium 140 (137-145) mmol/L Potassium 3.0 L (3.4-5.0) mmol/L Chloride 101 (98-107) mmol/L Carbon Dioxide 24 (22-30) mmol/L Anion Gap 15 H (4-12) mmol/L BUN 7 (7-17) mg/dL Creatinine 0.65 L (0.7-1.0) mg/dL Estim Creat Clear Calc 117 ml/min Estimated GFR > 60 (59 - ) Glucose 90 (65-110) mg/dL Lactic Acid 1.7 (0.7-2.0) mmol/L Calcium 8.6 (8.4-10.2) mg/dL Total Bilirubin 0.9 (0.2-1.3) mg/dL AST 31 (14-36) U/L ALT 17 (6-35) U/L Alkaline Phosphatase 56 (38-126) U/L Total Protein 7.0 (6.3-8.2) g/dL Albumin 4.4 (3.5-5.1) g/dL Lipase 55 (23-300) U/L Urine Color Yellow (Yellow) Urine Appearance Cloudy H (Clear) Urine pH 6.0 (5.0-9.0) Ur Specific [place] 1.016 (1.001-1.035) Urine Protein 1+ H (Negative) mg/dL Urine Glucose (UA) Negative (Negative) mg/dL Urine Ketones 3+ H (Negative) mg/dL Ur Blood (Man) 1+ H (Negative) Urine Nitrate Positive H (Negative) Urine Bilirubin Negative (Negative) Urine Urobilinogen 1.0 (<2.0) mg/dL Leukocyte Esterase Rfl 2+ H (Negative) HARI/UL Urine RBC 3-5 H (0-2) /hpf Urine WBC >100 H (0-3) /hpf Ur Squamous Epith Cells None seen (Few) /hpf Urine Bacteria 3+ H /hpf Urine Casts 0-2 POC Urine HCG, Qual Negative (Negative) Influenza A (RT-PCR) Negative (Negative) Influenza B (RT-PCR) Negative (Negative) RSV (RT-PCR) Negative (Negative) SARS-CoV-2 RNA (RT-PCR) Negative (Negative) <Chhaya Fernandez PA-C - Last Filed: 12/06/24 18:40> Lab Results 12/06/24 12/06/24 12/06/24 Range/Units 19:46 21:02 21:05 WBC 7.8 (4.5-10.0) K/mm3 RBC 4.45 (4.2-5.4) M/mm3 Hgb 12.8 (12.0-15.0) g/dL Hct 40.5 (37.0-47.0) % MCV 91.0 (80-100) fl MCH 28.8 (26-34) pg MCHC 31.6 L (32-36) g/dl RDW 13.9 (11.5-14.5) % Plt Count 204 (150-375) k/mm3 MPV 11.3 H (7.4-10.4) fl Immature Gran % (Auto) 0.3 (0-0.5) % Neut % (Auto) 68.4 (45.5-73.1) % Lymph % (Auto) 20.8 (18.3-44.2) % Sebastian % (Auto) 9.8 H (2.6-8.5) % Eos % (Auto) 0.1 (0-4.4) % Baso % (Auto) 0.6 (0.2-1.2) % Lymph # (Auto) 1.62 (0.9-3.2) K/mm3 Sebastian # (Auto) 0.8 H (0.1-0.6) K/mm3 Eos # (Auto) 0.0 (0-0.3) K/mm3 Baso # (Auto) 0.1 (0.0-0.1) K/mm3 Abs Immat Gran (auto) 0.02 (0.00-0.031) K/mm3 Absolute Neuts (auto) 5.3 (1.3-6.7) K/mm3 Absolute Nucleated RBC 0.000 (0.0-0.012) K/mm3 Nucleated RBC % 0.0 (0.0-0.2) % Sodium 140 (137-145) mmol/L Potassium 3.0 L (3.4-5.0) mmol/L Chloride 101 (98-107) mmol/L Carbon Dioxide 24 (22-30) mmol/L Anion Gap 15 H (4-12) mmol/L BUN 7 (7-17) mg/dL Creatinine 0.65 L (0.7-1.0) mg/dL Estim Creat Clear Calc 117 ml/min Estimated GFR > 60 (59 - ) Glucose 90 (65-110) mg/dL Lactic Acid 1.7 (0.7-2.0) mmol/L Calcium 8.6 (8.4-10.2) mg/dL Total Bilirubin 0.9 (0.2-1.3) mg/dL AST 31 (14-36) U/L ALT 17 (6-35) U/L Alkaline Phosphatase 56 (38-126) U/L Total Protein 7.0 (6.3-8.2) g/dL Albumin 4.4 (3.5-5.1) g/dL Lipase 55 (23-300) U/L Urine Color Yellow (Yellow) Urine Appearance Cloudy H (Clear) Urine pH 6.0 (5.0-9.0) Ur Specific [place] 1.016 (1.001-1.035) Urine Protein 1+ H (Negative) mg/dL Urine Glucose (UA) Negative (Negative) mg/dL Urine Ketones 3+ H (Negative) mg/dL Ur Blood (Man) 1+ H (Negative) Urine Nitrate Positive H (Negative) Urine Bilirubin Negative (Negative) Urine Urobilinogen 1.0 (<2.0) mg/dL Leukocyte Esterase Rfl 2+ H (Negative) HARI/UL Urine RBC 3-5 H (0-2) /hpf Urine WBC >100 H (0-3) /hpf Ur Squamous Epith Cells None seen (Few) /hpf Urine Bacteria 3+ H /hpf Urine Casts 0-2 POC Urine HCG, Qual Negative (Negative) Influenza A (RT-PCR) Negative (Negative) Influenza B (RT-PCR) Negative (Negative) RSV (RT-PCR) Negative (Negative) SARS-CoV-2 RNA (RT-PCR) Negative (Negative) <Patrice Paige MD - Last Filed: 12/06/24 22:12> Discharge Plan Discharge Clinical Impression: Pyelonephritis <Chhaya Fernandez PA-C - Last Filed: 12/06/24 18:40> Patient Disposition: Home <Chhaya Fernandez PA-C - Last Filed: 12/06/24 18:40> Condition: Stable <Chhaya Fernandez PA-C - Last Filed: 12/06/24 18:40> Instructions: Antibiotic Form, Kidney Infection (ED) <Chhaya Fernandez PA-C - Last Filed: 12/06/24 18:40> Additional Instructions: Please use Motrin and Tylenol for fevers and body aches. Use Zofran nausea. Complete a course of cefdinir. Follow-up with your primary care physician. If your condition is getting worse, you develop severe abdominal pain, intractable nausea/vomiting then pleasereturn to the ED for re-evaluation. <Chhaya Fernandez PA-C - Last Filed: 12/06/24 18:40> Patient Language: Mongolian <Chhaya Fernandez PA-C - Last Filed: 12/06/24 18:40> Prescriptions: New ibuprofen 800 mg tablet 800 mg PO TID PRN (Reason: pain) 7 Days Qty: 21 0RF acetaminophen 500 mg tablet 1,000 mg PO TID PRN (Reason: estephania) 7 Days Qty: 42 0RF cefdinir 300 mg capsule 300 mg PO Q12H Qty: 20 0RF ondansetron 4 mg tablet,disintegrating 4 mg PO Q8H PRN (Reason: nausea and vomiting) Qty: 30 0RF No Action bupropion HCl 150 mg tablet sustained-release 12 hr 150 mg PO BID buspirone 10 mg tablet 10 mg PO BID alprazolam 0.25 mg tablet 0.25 mg PO TID PRN (Reason: Anxiety) ondansetron 4 mg tablet,disintegrating 4 mg PO Q8H Qty: 20 0RF omeprazole magnesium [Prilosec OTC] 20 mg tablet,delayed release (DR/EC) 20 mg PO BID Qty: 20 0RF acetaminophen [Tylenol] 325 mg capsule 650 mg PO Q8H PRN (Reason: pain) Qty: 20 0RF Unisom (doxylamine) 25 mg tablet 25 mg PO HS PRN (Reason: nausea and vomiting) Qty: 30 0RF <Chhaya Fernandez PA-C - Last Filed: 12/06/24 18:40> Follow-up/Referrals: Mj,SAVANAH Corea [Primary Care Provider] - <Chhaya Fernandez PA-C - Last Filed: 12/06/24 18:40>
--- NOTE | 2024-12-06 18:39 | ECG_ITS ---
Test Date: 2024-12-06 19:46:04 Measurements Intervals [place] Rate: 109 P: 27 VT: 167 QRS: 41 QRSD: 89 T: -11 QT: 298 QTc: 402 Interpretive Statements SINUS TACHYCARDIA NONSPECIFIC ST & T-WAVE ABNORMALITY No previous ECG available for comparison Electronically Signed On 12-07-2024 11:52:00 CDT by Shanelle Ng M.D.
--- OUTSIDE RECORDS SUMMARY | 2024-12-06 19:32 | XMS_ITS | Encounter Summary ---
Author Organization [facility] Healthcare Address [address] [place] [id number] Care Team Providers Care Agile Project Manager Name Role Phone Sean Barker Primary Care Provider [phone] Reason for Visit * Reason Comments Headache Migraines, lower [place] pain, chills, nausea, vomiting, constipation, nausea. Symptoms started . otc excedrin, ibuprofen Encounter Details Date Type Department Care Team (Late st Contact Info) Description 12/06/2024 3:15 PM CDT Office Visit [facility] Medical [facility] at [place] [address] [place] [address] Thelma Alcala NP [address] [place] [address] Nausea (Primary Dx); Abdominal pain; Pyelonephritis Social [...] often do you attend chur ch or sabianist services? Never 08/25/2023 Do you belong to any clubs o r organizations such as mormonism groups, unions, fraternal or athletic groups, or [...] staff should administer the PHQ-9) 0 08/25/2023 [facility] - Occupational Stress Questionnaire [...] place to sleep or slept in a alf (including now)? 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 Gender Identity Not on file Sexual Orientation [...] - 12/06/2024 3:15 PM CDT Go to [facility] ED for further evaluation documented in this [...] Negative Ketones, ur, POC 15.(A) Negative Specific [place], POC 1.020 1.003 - 1.030 Blood, ur, POC Moderate(A) Negative pH, ur, POC 6.0 5.0 - 8.0 Protein, ur, POC 30.(A) Negative Urobilinogen, urine, POC 1.0 0.2 - 1.0 mg/dL Nitrite, ur, POC Negative Negative Leukocytes, ur, POC Moderate(A) Negative Lot Number [id number] Urine 12/06/2024 3:33 PM CDT us Thelma Ferminen FILENET ARCHITECT POINT OF CARE TEST ORDERABLES Fi nal Result documented in this encounter Visit Diagnoses Diagnosis Nausea- Primary Nausea alone Abdominal pain Abdominal pain, unspecified site Pyelonephritis Unspecified pyelonephritis documented in this encounter Care Teams Agile Project Manager Relationship Specialty Start Date End Date Sean Barker PA [address] [place] [address] PCP - General 08/25/17 documented as of this encounter
--- OUTSIDE RECORDS SUMMARY | 2024-12-06 19:33 | XMS_ITS | Referral Summary ---
Author Organization [facility] Building B Address [address] [place] [address] Care Team Providers Care Centura Technical Lead Senior Developer Name Role Phone Sean Barker Primary Care Provider [phone] Encounters Date Type Department Care Team Description 12/06/2024 4:24 PM CDT - 12/06/2024 4:28 PM CDT Emergency [facility] Emergency Department [address] [place] [address] Discharge Disposition: Left without being seen 12/06/2024 3:15 PM CDT Office Visit [facility] [place] [address] [place] [address] Thelma Alcala NP Nausea (Primary Dx); Abdominal pain; Pyelonephritis 11/02/2024 Results Follow-Up [facility] [place] [address] [place] [phone] Pretty Hayden NP 11/01/2024 1:47 PM CDT - 11/01/2024 11:59 [place] [address] Acute cystitis with hematuria Discharge Disposition: Discharge to home or self care 11/01/2024 2:00 PM CDT Office Visit [facility] [place] [address] [place] [phone] Thelma Alcala NP Acute cystitis with hematuria (Primary Dx) from Last 3 Months Allergies No known active allergies Medications escitalopram (LEXAPRO) 10 mg tablet TAKE 1 TABLET BY MOUTH EVERY DAY 90 tablet 4 Active al & mag hydroxide with simethicone-diph enhydramine-lido maday (MAGIC MOUTHWASH) suspension 2-4-3Ldyexvyster :Pharyngitis, unspecified etiology Swish and spit 10 mL every 4 (four) hours as needed (sore throat) 100 mL 4 Active cephalexin (KEFLEX) 500 mg capsule Take 1 capsule (500 mg total) by mouth 2 (two) times a day for 7 days 14 capsule 5 11/09/19 25 Active Problems Problem Noted Date Diagnosed Date care and examination 09/08/2023 Assessment & Plan (09/08/2023 9:53 AM DIETETIC INTERN): Doing well Tachycardia 08/28/2023 Assessment & Plan (09/08/2023 9:53 AM DIETETIC INTERN): Persist today She is about 110 She is asx. She states her pulse is always high. Tsh normal 08/28/23 Anemia 08/28/2023 Overview (09/08/2023): 08/28/23- 7.4 Assessment & Plan (10/06/2023 2:29 PM CDT): To cbc She is feeling good No more tachycardia. Assessment & Plan (09/08/2023 9:48 AM DIETETIC INTERN): She is taking her iron. 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 Never 08/25/2023 Do you belong to [...] staff should administer the PHQ-9) 0 08/25/2023 [facility] - Occupational Stress Questionnaire Answer Date [...] place to sleep or slept in a [place] health care facility (including now)? No 08/25/2023 [place] Depression Scale Answer Date Recorded [place] Depression Scale Total 0 10/06/2023 The thought [...] on file Legal Sex Female 4:17 PM DIETETIC INTERN Gender Identity Not on file Sexual Orientation [...] HEPATITIS C ANTIBODY Routine 06/08/2023 12:17 PM DIETETIC INTERN Encounter for supervision of normal first in [...] Negative Ketones, ur, POC 15.(A) Negative Specific [place], POC 1.020 1.003 - 1.030 Blood, ur, POC Moderate(A) Negative pH, ur, POC 6.0 5.0 - 8.0 Protein, ur, POC 30.(A) Negative Urobilinogen, urine, POC 1.0 0.2 - 1.0 mg/dL Nitrite, ur, POC Negative Negative Leukocytes, ur, POC Moderate(A) Negative Lot Number [id number] Urine 12/06/2024 3:33 PM CDT us Thelma Alcala NP POINT OF CARE TEST ORDERABLES Fi nal Result * (ABNORMAL) POCT urinalysis dipstick (11/01/2024 1:48 PM CDT) Color, Urine, POC Light Yellow Clarity, ur, POC Turbid(A) Clear Glucose, ur, POC Negative Negative MG/DL Bilirubin, ur, POC Negative Negative, Small, Moderate, Large Ketones, ur, POC Negative Negative Specific [place], POC 1.025 1.003 - 1.030 Blood, ur, POC Moderate(A) Negative pH, ur, POC 7.0 5.0 - 8.0 Protein, ur, POC 100.(A) Negative Urobilinogen, urine, POC 0.2 0.2 - 1.0 mg/dL Nitrite, ur, POC Negative Negative Leukocytes, ur, POC Moderate(A) Negative Lot Number [id number] Urine 11/01/2024 1:48 PM CDT us Thelma Alcala NP POINT OF CARE TEST ORDERABLES Fi nal Result * (ABNORMAL) Urine culture Urine, clean voided (11/01/2024 1:47 PM CDT) Report Final Report: Greater than or equal to 100,000 colonies/mL of Escherichia coli (.) Comment:Testing performed by : [facility], [address] [place]., [address] Organism ESCHERICHIA COLI DESMOND Urine, clean voided 11/01/2024 1:47 PM CDT 11/01/2024 10:34 PM CDT Narrative DESMOND - 11/04/2024 6:17 AM CDT Testing performed by [facility] Microbiology Laboratory ([phone]) Organism Antibiotic Method Susceptibility Escherichia coli Ampicillin [...] ORDER ADRIAN Final Result Performing Organization Address City/[facility] Co de Phone Number [facility] [address] [address] Department [place] [address] * Hepatitis C antibody Blood (06/08/2023 12:17 PM DIETETIC INTERN) Hep C Ab Nonreactive Nonreactive DESMOND Comment: [...] on 2019. Blood 06/08/2023 12:1 7 PM DIETETIC INTERN 06/08/2023 8:11 PM DIETETIC INTERN Rajni Chamberlain CASTING MACHINE SET UP OPERATOR LAB MICROBIOLOGY - GENERAL [place] [address] [address] Department [place] [address] from Last 3 Months or Most Recently Relevant to Health Maintenance Insurance [employer] [facility] [employer] [facility] Advance Directives For more information, please contact: [phone] * Full Code (Latest Code Status on File) Date Activated Date Inactivated Comments 08/26/2023 5:16 AM 08/28/2023 5:54 PM * Full Code Date Activated Date Inactivated Comments 08/25/2023 11:30 AM 08/26/2023 5:16 AM Full CPR in case of cardiopulmonary arrest Care Teams Centura Technical Lead Senior Developer Relationship Specialty Start Date End Date Sean Barker PA [address] [place] [address] PCP - General 08/25/17
--- OUTSIDE RECORDS SUMMARY | 2024-12-06 19:34 | XMS_ITS | Encounter Summary ---
Author Organization [facility] Healthcare Address [address] [place] [id number] Care Team Providers Care System Planning Engineer Name Role Phone Sean Barker Primary Care Provider [phone] Encounter Details Date Type Department Care Team (Late st Contact Info) Description 12/06/2024 4:24 PM CDT - 12/06/2024 4:28 PM CDT Emergency [facility] Emergency Department [address] [place] [address] Discharge Disposition: Left without being seen Social [...] often do you attend chur ch or adventist services? Never 08/25/2023 Do you belong to any clubs o r organizations such as spiritism groups, unions, fraternal or athletic groups, or [...] staff should administer the PHQ-9) 0 08/25/2023 [facility] of Occupat ional [facility] - Occupational Stress Questionnaire Answer [...] place to sleep or slept in a senior living (including now)? 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
--- OUTSIDE RECORDS SUMMARY | 2024-12-06 19:34 | XMS_ITS | Clinical Summary ---
Author Organization [facility] Medical Office Building B Address [address] [place] [address] Care Team Providers Care Outreach Librarian Name Role Phone Sean Barker Primary Care Provider [phone] Allergies No known active allergies Medications escitalopram (LEXAPRO) 10 mg tablet TAKE 1 TABLET BY MOUTH EVERY DAY 90 tablet 4 Active al & mag hydroxide with simethicone-diph enhydramine-lido maday (MAGIC MOUTHWASH) suspension 0-5-3Aujdtetzlvs :Pharyngitis, unspecified etiology Swish and spit 10 mL every 4 (four) hours as needed (sore throat) 100 mL 4 Active cephalexin (KEFLEX) 500 mg capsule Take 1 capsule (500 mg total) by mouth 2 (two) times a day for 7 days 14 capsule 5 11/09/19 25 Active Problems Problem Noted Date Diagnosed Date care and examination 09/08/2023 Assessment & Plan (09/08/2023 9:53 AM GROCERY SPECIALIST): Doing well Tachycardia 08/28/2023 Assessment & Plan (09/08/2023 9:53 AM GROCERY SPECIALIST): Persist today She is about 110 She is asx. She states her pulse is always high. Tsh normal 08/28/23 Anemia 08/28/2023 Overview (09/08/2023): 08/28/23- 7.4 Assessment & Plan (10/06/2023 2:29 PM CDT): To cbc She is feeling good No more tachycardia. Assessment & Plan (09/08/2023 9:48 AM GROCERY SPECIALIST): She is taking her iron. Carrier of [...] pp Assessment & Plan (09/08/2023 9:46 AM GROCERY SPECIALIST): She got pp Encounters Date Type Department Care Team Description 12/06/2024 4:24 PM CDT - 12/06/2024 4:28 PM CDT Emergency [facility] Emergency Department [address] [place] [address] Discharge Disposition: Left without being seen 12/06/2024 3:15 PM CDT Office Visit [facility] Medical [facility] at [address] [place] [address] Thelma Alcala NP Nausea (Primary Dx); Abdominal pain; Pyelonephritis 11/02/2024 Results Follow-Up [facility] [place] [address] [place] [address] Pretty Hayden NP 11/01/2024 2:00 PM CDT Office Visit 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 Never 08/25/2023 Do you belong to any clubs o r organizations such as christianity groups, unions, fraternal or athletic groups, or [...] administer the PHQ-9) 0 08/25/2023 [facility] - Occupational Stress Questionnaire Answer Date [...] health care facility (including now)? No 08/25/2023 [place] Depression Scale Answer Date Recorded [place] Depression Scale Total 0 10/06/2023 The thought [...] on file Legal Sex Female 4:17 PM GROCERY SPECIALIST Gender Identity Not on file Sexual Orientation [...] Pro sampson in Second Stage Delivery Location:This [facility] PROCED[facility]) Last [...] HEPATITIS C ANTIBODY Routine 06/08/2023 12:17 PM GROCERY SPECIALIST Encounter for supervision of normal first in [...] Negative Ketones, ur, POC 15.(A) Negative Specific [place], POC 1.020 1.003 - 1.030 Blood, ur, POC Moderate(A) Negative pH, ur, POC 6.0 5.0 - 8.0 Protein, ur, POC 30.(A) Negative Urobilinogen, urine, POC 1.0 0.2 - 1.0 mg/dL Nitrite, ur, POC Negative Negative Leukocytes, ur, POC Moderate(A) Negative Lot Number [id number] Urine 12/06/2024 3:33 PM CDT [facility] POINT OF CARE TEST ORDERABLES Fi nal Result * (ABNORMAL) POCT urinalysis dipstick (11/01/2024 1:48 PM CDT) Color, Urine, POC Light Yellow Clarity, ur, POC Turbid(A) Clear Glucose, ur, POC Negative Negative MG/DL Bilirubin, ur, POC Negative Negative, Small, Moderate, Large Ketones, ur, POC Negative Negative Specific [place], POC 1.025 1.003 - 1.030 Blood, ur, POC Moderate(A) Negative pH, ur, POC 7.0 5.0 - 8.0 Protein, ur, POC 100.(A) Negative Urobilinogen, urine, POC 0.2 0.2 - 1.0 mg/dL Nitrite, ur, POC Negative Negative Leukocytes, ur, POC Moderate(A) Negative Lot Number [id number] Urine 11/01/2024 1:48 PM [facility] POINT OF CARE TEST ORDERABLES Fi nal Result * (ABNORMAL) Urine culture Urine, clean voided (11/01/2024 1:47 PM CDT) Report Final Report: Greater than or equal to 100,000 colonies/mL of Escherichia coli (.) Comment:Testing performed by : [facility], [address] [place]., [address] Organism ESCHERICHIA COLI DESMOND Urine, clean voided 11/01/2024 1:47 PM CDT 11/01/2024 10:34 PM CDT Narrative DESMOND - 11/04/2024 6:17 AM CDT Testing performed by [facility] Microbiology Laboratory ([phone]) Organism Antibiotic Method Susceptibility Escherichia coli Ampicillin [...] - GENERAL ORDER ADRIAN Final Result [place] [address] [address] Department [place] [address] * Hepatitis C antibody Blood (06/08/2023 12:17 PM GROCERY SPECIALIST) Hep C Ab Nonreactive Nonreactive DESMOND Comment: [...] on 2019. Blood 06/08/2023 12:1 7 PM GROCERY SPECIALIST 06/08/2023 8:11 PM GROCERY SPECIALIST Rajni Chamberlain BILL ADJUSTER LAB MICROBIOLOGY - GENERAL ORDERABLES Final Result DESMOND [address] [place] [address] from Last 3 Months or Most Recently Relevant to Health Maintenance Insurance [facility] Advance Directives For more information, please contact: [phone] * Full Code (Latest Code Status on File) Date Activated Date Inactivated Comments 08/26/2023 5:16 AM 08/28/2023 5:54 PM * Full Code Date Activated Date Inactivated Comments 08/25/2023 11:30 AM 08/26/2023 5:16 AM Full CPR in case of cardiopulmonary arrest Care Teams Outreach Librarian Relationship Specialty Start Date End Date Sean Barker PA [address] [place] [address] PCP - General 08/25/17
[2024-12-06] MEDS: SODIUM CHLORIDE 0.9% IV 2,000 ML 999 ML IV CONT (19:44)
[2024-12-06] MEDS: ACETAMINOPHEN 500 MG TABLET 1000 MG PO (19:44)
[2024-12-06] MEDS: ONDANSETRON INJ 4 MG/2 ML VIAL IV PUSH (19:44)
[2024-12-06] MEDS: SODIUM CHLORIDE 0.9% IV 1,000 ML 999 ML IV CONT (19:44)
[2024-12-06 19:53] LABS: Basophils Absolute Auto 0.1 K/mm3 (0.0-0.1); Basophils Percent Auto 0.6 % (0.2-1.2); Eosinophils Percent Auto 0.1 % (0-4.4); Hematocrit 40.5 % (37.0-47.0); Hemoglobin 12.8 g/dL (12.0-15.0); Immature Granulocyte Absolute 0.02 K/mm3 (0.00-0.031); Immature Granulocyte Percent A 0.3 % (0-0.5); Lymphocytes Absolute Auto 1.62 K/mm3 (0.9-3.2); Lymphocytes Percent Auto 20.8 % (18.3-44.2); Mean Corpuscular HGB Conc 31.6 g/dl (32-36); Mean Corpuscular Hemoglobin 28.8 pg (26-34); Mean Platelet Volume 11.3 fl (7.4-10.4); Monocytes Absolute Auto 0.8 K/mm3 (0.1-0.6); Monocytes Percent Auto 9.8 % (2.6-8.5); Neutrophils Absolute Auto 5.3 K/mm3 (1.3-6.7); Neutrophils Percent Auto 68.4 % (45.5-73.1); Platelet Count Result 204 k/mm3 (150-375); Red Blood Count 4.45 M/mm3 (4.2-5.4); Red Cell Distribution Width 13.9 % (11.5-14.5); White Blood Count 7.8 K/mm3 (4.5-10.0)
[2024-12-06] MEDS: KETOROLAC 15 MG/ML VIAL (*BKC) IV PUSH (19:53)
[2024-12-06 20:02] LABS: Lactic Acid Reflex 1.7 mmol/L (0.7-2.0)
--- NOTE | 2024-12-06 20:02 | PC.NURSE ---
pt reports no urge to urinate at this time. provided ordered IV fluids and educated to use call light with urge to provide sample.
[2024-12-06 20:04] LABS: Alanine Aminotransferase 17 U/L (6-35); Albumin Level 4.4 g/dL (3.5-5.1); Alkaline Phosphatase 56 U/L (38-126); Anion Gap 15 mmol/L (4-12); Aspartate Amino Transferase 31 U/L (14-36); Bilirubin,Total 0.9 mg/dL (0.2-1.3); Blood Urea Nitrogen 7 mg/dL (7-17); Calcium 8.6 mg/dL (8.4-10.2); Carbon Dioxide 24 mmol/L (22-30); Chloride 101 mmol/L (98-107); Estimated CRCL calculation 117 ml/min; Estimated Glomerular Filt Rate > 60; Glucose 90 mg/dL (65-110); Lipase 55 U/L (23-300); Sodium 140 mmol/L (137-145)
[2024-12-06] MEDS: POTASSIUM CHLORIDE 20 MEQ ER TABLET 40 MEQ PO (20:40)
--- NOTE | 2024-12-06 20:55 | PC.NURSE ---
this RN had to pull a different potassium 20mEq due to pt attempting to take pill and vomiting it up from it being large. second pill goes down well and other pill was wasted.
[2024-12-06 21:07] LABS: BEDSIDEPREGUCG Negative (Negative)
[2024-12-06 21:14] LABS: Add Urine Microscopic? YES; Appearance Urine Cloudy (Clear); Bacteria Urine 3+ /hpf; Bilirubin Urine Negative (Negative); Blood Urine 1+ (Negative); Color Urine Yellow (Yellow); Glucose Urine UA Negative (Negative); Ketones Urine 3+ mg/dL (Negative); Leukocyte Esterase Ur 2+ LEU/UL (Negative); Nitrate Urine Positive (Negative); Non Pathogenic Casts 0-2; Protein Urine 1+ mg/dL (Negative); Specific Grav Ur 1.016 (1.001-1.035); Squamous Epithelial Cell Urine None Seen /hpf (Few); WBC Urine >100 /hpf (0-3)
--- NOTE | 2024-12-06 21:30 | PC.NURSE ---
Pt to CT at this time. ABX to start on pt return to ER room.
[2024-12-06 21:45] LABS: Influenza A QL RT-PCR Negative (Negative); Influenza B QL RT-PCR Negative (Negative); RSV RNA, RT-PCR Negative (Negative); SARS-CoV-2 RNA PCR Negative (Negative)
== END 2024-12-06 22:26 | disposition home or self-care (01) ==
PROVIDERS: Physician Assistant; Emergency Provider Emergency Medicine; PCP Physician Assistant
DX: N12 Tubulo-interstitial nephritis, not specified as acute or chronic (principal); Z20.822 Contact with and (suspected) exposure to COVID-19; K21.9 Gastro-esophageal reflux disease without esophagitis
CPT/HCPCS: 36415; 74176; 80053; 81001; 81025; 83605; 83690; 85025; 87086; 87186; 87637; 93005; 96361; 96365; 96375; 99284; A9270; J0696; J1885; J2405; J7030